=== PATIENT | female | born 1955 | race Caucasian/White ===

== ENCOUNTER 2023-11-17 07:08 | Emergency (ER) | payer MEDICARE ==
[~2023-11-17] VITALS: Ht 160 cm; Wt 88.0 kg
[~2023-11-17 07:08] MED LIST: EFFEXOR XR150 MG PO; FISH OIL1000 MG PO; HYDROCHLORO25 MG/TAB PO; NAPROSYN500 MG PO; NAPROXEN500 MG PO; ZOLOFT25 MG PO
[2023-11-17 07:14] VITALS: BP 116/81
[2023-11-17 08:13] VITALS: BP 112/66
[2023-11-17] MEDS ORDERED: ACETAMINOPHEN 500 MG TAB PO ONE (08:15)
[2023-11-17 08:16] VITALS: BP 110/62
[2023-11-17 08:31] VITALS: BP 105/61
[2023-11-17] MEDS ORDERED: TRAMADOL HYDROC50 M1 PO (09:45)
[2023-11-17] MEDS ORDERED: NAPROXEN500 MG PO (09:45)
[2023-11-17 10:15] VITALS: BP 105/61
== END 2023-11-17 10:27 | disposition home or self-care (01) ==
LOC: ED 07:08
PROC: 2W3CX1Z Immobilization of Right Lower Arm using Splint (ICD-10-PCS; principal; 2023-11-17)
DX: S52.501A Unspecified fracture of the lower end of right radius, initial encounter for closed fracture (principal); S52.611A Displaced fracture of right ulna styloid process, initial encounter for closed fracture; I10 Essential (primary) hypertension; F32.A Depression, unspecified; W01.0XXA Fall on same level from slipping, tripping and stumbling without subsequent striking against object, initial encounter; Y92.009 Unspecified place in unspecified non-institutional (private) residence as the place of occurrence of the external cause